=== PATIENT | male | born 1985 | race Hispanic/Latino ===

== ENCOUNTER 2017-05-20 19:08 | Emergency (ER) | payer SELFPAY | END 2017-05-20 20:10 | disposition home or self-care (01) | LOC: EDH 19:08 | DX: S00.03XA Contusion of scalp, initial encounter (principal); S60.221A Contusion of right hand, initial encounter; S60.211A Contusion of right wrist, initial encounter; J45.909 Unspecified asthma, uncomplicated; R20.2 Paresthesia of skin; Z72.0 Tobacco use; Y35.891A Legal intervention involving other specified means, law enforcement official injured, initial encounter; Y93.89 Activity, other specified; Y92.89 Other specified places as the place of occurrence of the external cause; Y99.8 Other external cause status | CPT/HCPCS: 73130 ==

== ENCOUNTER 2018-06-09 08:28 | Emergency (ER) | payer OTHER ==
[2018-06-09] MEDS ORDERED: ACETAMINOPHEN EXTRA STRENGTH 500 MG TABLET ONE (10:31)
== END 2018-06-09 11:01 | disposition home or self-care (01) ==
LOC: EDH 08:28
DX: S62.316A Displaced fracture of base of fifth metacarpal bone, right hand, initial encounter for closed fracture (principal); J45.909 Unspecified asthma, uncomplicated; F12.10 Cannabis abuse, uncomplicated; Z87.891 Personal history of nicotine dependence; Y04.0XXA Assault by unarmed brawl or fight, initial encounter; Y93.89 Activity, other specified; Y92.098 Other place in other non-institutional residence as the place of occurrence of the external cause; Y99.8 Other external cause status
CPT/HCPCS: 29125; 73030; 73110; 73130

== ENCOUNTER 2021-11-18 06:00 | Emergency (ER) | payer OTHER ==
[~2021-11-18] VITALS: Ht 165.1 cm; Wt 83.9 kg
[2021-11-18] MEDS ORDERED: KETOROLAC 30MG VIAL (30MG/ML) IM SCH (07:26)
[2021-11-18] MEDS ORDERED: NAPR375T6 PO (08:03)
[2021-11-18 08:06] VITALS: BP 132/88
== END 2021-11-18 08:16 | disposition home or self-care (01) ==
LOC: EDH 06:00
DX: G89.29 Other chronic pain (principal); M54.50 Low back pain, unspecified; Z79.1 Long term (current) use of non-steroidal anti-inflammatories (NSAID)
CPT/HCPCS: 99283; 96372; J1885